=== PATIENT | male | born 1985 | race Caucasian/White ===

== ENCOUNTER 2021-05-09 19:51 | Emergency (ER) | payer OTHER ==
[~2021-05-09] VITALS: Ht 188 cm; Wt 104.3 kg
[2021-05-09] MEDS ORDERED: ADDERALL 20 MG20 MG PO (20:09)
[2021-05-09] MEDS ORDERED: PROPRANOLOL 20M20 MG PO (20:10)
[2021-05-09] MEDS ORDERED: BUSPIRONE HCL10 MG PO (20:10)
[2021-05-09] MEDS ORDERED: REXULTI0.5 MG PO (20:11)
[2021-05-09] MEDS ORDERED: CLONAZEPAM 0.50.5 M1 PO (20:11)
[2021-05-09] MEDS ORDERED: SEROQUEL200 MG PO (20:11)
[2021-05-09] MEDS ORDERED: HYDROXYZINE HCL25 M2 PO (20:12)
[2021-05-09] MEDS ORDERED: VRAYLAR1.5 MG PO (20:13)
[2021-05-09] MEDS ORDERED: CEPHALEXIN500 MG PO (20:34)
[2021-05-09 21:15] VITALS: BP 130/72
== END 2021-05-09 21:15 | disposition home or self-care (01) ==
LOC: M.ERS 19:51
DX: S61.215A Laceration without foreign body of left ring finger without damage to nail, initial encounter (principal); S61.217A Laceration without foreign body of left little finger without damage to nail, initial encounter; Z79.899 Other long term (current) drug therapy; W29.3XXA Contact with powered garden and outdoor hand tools and machinery, initial encounter; Y93.89 Activity, other specified; Y92.89 Other specified places as the place of occurrence of the external cause; Y99.8 Other external cause status